=== PATIENT | male | born 1970 | race Caucasian/White ===

== ENCOUNTER → 2020-06-14 12:23 | Outpatient (CLI) | payer OTHER, SELFPAY ==
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
== END ==
PROVIDERS: PCP Family Medicine; Referring Provider Physician Assistant; Visit Provider Physician Assistant
DX: R07.81 Pleurodynia (principal)
CPT/HCPCS: 71101

== ENCOUNTER → 2022-01-23 11:48 | Outpatient (CLI) | payer OTHER, MEDICAID, SELFPAY ==
--- NOTE | 2022-01-23 11:51 | DI.RAD.S_ITS ---
PROCEDURE: XR CERVICAL SPINE 2V OR 3V INDICATIONS: neck pain with left hand numbness TECHNIQUE: 3 view(s) of the cervical spine were acquired. COMPARISON: None. FINDINGS: Bones: No fractures or dislocations to the T1 level. Mild degenerative change in the cervical spine. The lateral masses of C1 appear intact on the odontoid view. No suspicious bony lesions. Skin marker overlying the left upper chest. Soft tissues: No prevertebral soft tissue swelling. IMPRESSION: Mild degenerative change in the cervical spine. If clinically indicated MRI could be considered for further evaluation. Dictated by: Phuc Rodriguez M.D. on 01/23/2022 at 14:31 Approved by: Phuc Rodriguez M.D. on 01/23/2022 at 14:32
== END ==
PROVIDERS: PCP Family Medicine; Referring Provider Family Medicine; Visit Provider Family Medicine
DX: F17.200 Nicotine dependence, unspecified, uncomplicated (principal); M54.2 Cervicalgia
CPT/HCPCS: 72040

== ENCOUNTER → 2022-03-04 08:23 | Outpatient (CLI) | payer OTHER, MEDICAID, SELFPAY ==
[2022-03-04 09:22] LABS: Add Manual Diff / Slide Review NO; Basophils Absolute Auto 0 /uL (0-100); Basophils Percent Auto 0.2 % (0-2); Eosinophils Absolute Auto 300 /uL (0-450); Eosinophils Percent Auto 3.6 % (2-4); Hematocrit 39.5 % (41-53); Hemoglobin 13.7 g/dL (13.5-17.5); Lymphocytes Absolute Auto 2500 /uL (1100-4500); Lymphocytes Percent Auto 32.6 % (25-40); Mean Corpuscular HGB Conc 34.7 % (30-36); Mean Corpuscular Hemoglobin 32.3 PG (26-34); Mean Corpuscular Volume 92.9 fL (80-100); Monocytes Absolute Auto 600 /uL (0-900); Monocytes Percent Auto 7.2 % (3-14); Neutrophils Absolute Auto 4400 /uL (1500-7000); Neutrophils Percent Auto 56.4 % (50-75); Platelet Count 254 X10^3/uL (150-400); Red Blood Cell Count 4.25 X10^6/uL (4.5-5.9); Red Cell Distribution Width 12.9 % (11.6-14.8); White Blood Cell Count 7.7 X10^3/uL (4.5-11.0)
[2022-03-04 09:34] LABS: Alanine Aminotransferase 27 IU/L (<50); Albumin 4.1 g/dL (3.5-5.0); Albumin Globulin Ratio 1.6 (1.0-2.8); Alkaline Phosphatase 77 U/L (38-126); Aspartate Aminotransferase 26 IU/L (17-59); BUN Creatinine Ratio 22.3 (6-22); Bilirubin Total 0.7 mg/dL (0.2-1.3); Blood Urea Nitrogen 21 mg/dL (9-20); Calcium 8.9 mg/dL (8.4-10.2); Carbon Dioxide 27 mmol/L (22-32); Chloride 102 mmol/L (98-107); Cholesterol 188 mg/dL (140-199); Estimated Glomerular Filt Rate > 60 mL/min (>60); Globulin 2.6 g/dL (1.7-4.1); Glucose 90 mg/dL (70-100); HDL Cholesterol 49 mg/dL (40-60); HEMOLYSIS < 15 (0-50); LDL Cholesterol Calculated 111 mg/dL (<100); Potassium 4.2 mmol/L (3.4-5.1); Sodium 137 mmol/L (137-145); Total Protein 6.7 g/dL (6.3-8.2); Triglycerides 138 mg/dL (35-150)
[2022-03-04 09:55] LABS: Creatinine Urine Random 155.7 mg/dL
[2022-03-04 10:01] LABS: TSH w/ Reflex to FT4 3.95 uIU/mL (0.47-4.68)
[2022-03-04 10:02] LABS: Microalbumin Urine Random < 0.6 mg/dL (0-1.6)
== END ==
PROVIDERS: PCP Family Medicine; Referring Provider Family Medicine; Visit Provider Family Medicine
DX: F17.200 Nicotine dependence, unspecified, uncomplicated (principal); M54.2 Cervicalgia
CPT/HCPCS: 36415; 80053; 80061; 82043; 82570; 84443; 85025

== ENCOUNTER → 2022-03-21 11:51 | Outpatient (CLI) | payer OTHER, MEDICAID, SELFPAY ==
[2022-03-21 13:39] LABS: COVID19 -Nasal RAPID Negative (Negative)
--- NOTE | 2022-03-21 14:35 | PM.TREADMILL ---
Cardiac Stress Test Report Referral & Results Date Patient Seen: 03/21/22 Requesting provider: Bentley Gill Indication: Family history coronary disease Rest ECG: Unremarkable Procedure Note: Today following both written and verbal informed consent, the patient was exercised according to a standard Neri protocol. The patient exercised for a total of 12 minutes 24 seconds achieving a maximum heart rate of 151. Patient's maximum systolic blood pressure was 168. This was an estimated 12.8 MET's. There were nonspecific ST-T segment changes specially in the inferior leads with exercise that rapidly returned to normal the end of exercise. These are likely nonischemic Normal heart rate and blood pressure response to exercise Function aerobic impairment off scale estimate it at -23% on the active scale or 123% of normal Impression: Normal treadmill no evidence of ischemia. Nonspecific ST changes make this possibly low risk treadmill but I think should be considered entirely normal Excellent exercise capacity Clinical correlation suggested Please note: Actual ECG tracings can be found in the PACS system.
== END ==
PROVIDERS: PCP Family Medicine; Referring Provider Family Medicine; Visit Provider Family Medicine
DX: R20.0 Anesthesia of skin (principal); F17.200 Nicotine dependence, unspecified, uncomplicated; Z82.49 Family history of ischemic heart disease and other diseases of the circulatory system; E78.5 Hyperlipidemia, unspecified; Z20.822 Contact with and (suspected) exposure to COVID-19
CPT/HCPCS: 87635; 93016; 93017; 93018

== ENCOUNTER → 2022-05-20 10:36 | Outpatient (CLI) | payer OTHER, MEDICAID, SELFPAY ==
[2022-05-20 11:18] LABS: COVID19 -Nasal RAPID Negative (Negative)
== END ==
PROVIDERS: PCP Family Medicine; Visit Provider Surgery
DX: Z01.812 Encounter for preprocedural laboratory examination (principal); Z20.822 Contact with and (suspected) exposure to COVID-19
CPT/HCPCS: 87635

== ENCOUNTER 2022-05-20 11:28 | Day surgery (SDC) | payer OTHER, MEDICAID, SELFPAY ==
[2022-05-20 11:47] VITALS: BP 130/88; PULSE 68; RESP 18; TEMP 36.1; O2SAT 99; BMI 27.1
[2022-05-20] MEDS: LACTATED RINGERS 1,000 ML 200 ML IV (11:56)
--- NOTE | 2022-05-20 12:37 | PM.HP.1 ---
History of Present Illness History of Present Illness Date Patient Seen: 05/20/22 Time Patient Seen: 12:37 [place] [facility] [place] The patient presents for colorectal screening. They have never had any previous examination for such. No personal or family history of colon cancer. On further history denies any recent gastrointestinal symptoms. No nausea, vomiting, abdominal pain, loss of appetite, unexplained weight loss, change in bowel habits, or blood per rectum. Patient History Medical History Chicken pox (~1979) Family history of coronary artery disease No active medical problems Smoker unmotivated to quit (10/11/13) Family & Social History Family History Mother Mental health problem Sister Mental health problem Social History: household members children Tobacco & Substance use: Tobacco type cigarettes Smoking Status Current every day smoker alcohol intake current alcohol intake frequency 0-2 drinks per day Substance Use Type does not use Meds Home Medications and Allergies Home Medications Medication Instructions Recorded Confirmed Type No Known Home Medications 05/19/22 05/20/22 History Allergies Allergy/AdvReac Type Severity Reaction Status Date / Time No Known Drug Allergies Allergy Verified 05/20/22 11:46 Exam Vital Signs (past 8 hours): - 05/20/22 11:47 Temperature 96.9 F L Pulse Rate 68 Respiratory Rate 18 Blood Pressure 130/88 Pulse Oximetry 99 Oxygen Delivery Method Room Air Oxygen Delivery Method Room Air Narrative Exam Narrative: General adult man alert oriented no acute distress Abdomen soft nontender nondistended Assessment & Plan Assessment & Plan narrative: The patient requires colorectal screening and colonoscopy is recommended. Technical details were discussed. Risks, benefits, alternatives explained. Risks including but not limited to myocardial infarction, aspiration, bleeding, pain, missed lesion, incomplete examination, need for further radiographic studies, colonic perforation, and need for major abdominal surgery were discussed. All questions were answered to their satisfaction, and they are in agreement with this plan. Time Spent With Patient Critical Care time: I spent a total of [] minutes of critical care time on this patient's care today; this time is exclusive of procedural time.
--- NOTE | 2022-05-20 12:38 | PM.OP.COLON ---
Operative Date/Time/Diagnoses Date of procedure: 05/20/22 Time of procedure: 12:38 Pre-op diagnosis: Colorectal screening Post-op diagnosis: same Procedure & Clinicians Study performed: Colonoscopy Same procedure as scheduled: Yes Indications: Colorectal screening Surgeon: Amilcar Payton Procedure Notes Procedure in detail: The history and physical was performed/updated and the patient is ASA class is 1. The procedure was discussed in detail with the patient. Potential risks complications including infection, bleeding, missed diagnosis, perforation, need for surgery, and were explained. Their questions were answered and informed consent was obtained. Patient was brought to the procedure room and placed standard monitoring equipment. The patient's vital signs were monitored continuously throughout the entire procedure. Prior to starting time-out was performed. The patient was placed in the left lateral recumbent position. Procedural sedation was administered by anesthesia. Examination began with a thorough inspection of the perianal area there was no evidence of fissures, fistulae, external hemorrhoids or cutaneous malignancy. The colonoscopy scope was then placed into the anal canal and was advanced to the cecum, which was identified by the ileocecal valve, the appendiceal orifice and the confluence of the taenia. The scope was then slowly withdrawn examining colon thoroughly in all directions, irrigating it of any residual stool. FINDINGS 1. No masses inflammation or polyps 2. Sigmoid extensive diverticulosis The patient tolerated the procedure well. They will be discharged once criteria are met. The prep was of good/excellent quality. The withdrawl time was 6 minutes. Specimen(s): none sent Impression: Normal colonoscopy Post-procedure Recommendations: Colonoscopy in 10 years and High fiber diet Disposition: same day surgery
[2022-05-20 12:57] VITALS: BP 112/87; PULSE 70; RESP 18; TEMP 36.3; O2SAT 94
[2022-05-20 13:02] VITALS: BP 113/83; PULSE 63; RESP 15; O2SAT 97
[2022-05-20 13:07] VITALS: BP 118/87; PULSE 60; RESP 14; TEMP 36.2; O2SAT 99
[2022-05-20 13:16] VITALS: BP 124/88; PULSE 62; RESP 13; TEMP 36.2; O2SAT 97
--- NOTE | 2022-05-20 13:40 | SUR.PHASEII ---
1325: Pt A&O x 4 denies any distress, abdomen soft, and desires to discharge home at this time. Discharge instructions reviewed and time allowed for questions. Pt left unit via w/c to er entrance where spouse met to transport pt home.
== END 2022-05-20 13:30 | disposition home or self-care (01) ==
PROVIDERS: PCP Family Medicine; Referring Provider Surgery; Visit Provider Surgery
PROC: 0DJD8ZZ Inspection of Lower Intestinal Tract, Via Natural or Artificial Opening Endoscopic (ICD-10-PCS; CPT 45378; principal; 2022-05-20 12:45)
DX: Z12.11 Encounter for screening for malignant neoplasm of colon (principal); K57.30 Diverticulosis of large intestine without perforation or abscess without bleeding
CPT/HCPCS: 45378; 87635; C9803; J2704

== ENCOUNTER 2022-09-22 16:27 | Outpatient (RCR) | payer OTHER, MEDICAID, SELFPAY ==
--- NOTE | 2022-09-22 17:52 | PT.OIE ---
Current Diagnoses Pain in right shoulder (09/22/22) Stiffness of right shoulder, not elsewhere classified (09/22/22) Other specified joint disorders, right shoulder (09/22/22) Bicipital tendinitis, right shoulder (09/22/22) Past Medical History (Last Reviewed 05/20/22 @ 12:37 by Amilcar Payton MD) Chicken pox (~1979) Family history of coronary artery disease No active medical problems Smoker unmotivated to quit (10/11/13) Visit Care Team Role Provider Type Bentley Gill MD Attending Provider Physician Family Provider Primary Care Provider Referring Provider Specialty: Family Practice Address: [address] [place] [address] Email: [email or web address] Physical Therapy Initial Evaluation PT-OP-A Visit Information Start: 09/22/22 15:19 Freq: Status: Active Protocol: Document 09/22/22 16:35 DCW (Rec: 09/22/22 17:37 DCW [id number]) Out-Patient Physical Therapy Visit Information Visit Information Visit Type Initial Evaluation Visit Start Time 16:35 Visit Stop Time 17:15 Total Visit Minutes 40 Visit Number 1 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 Pt unsure of any specific GRAYSON, but does note that he spends a lot of time driving his kids around town and making short trips, which results in repetitively reaching across his body for his seatbelt, which is when he first noticed pain. Pt also works at [employer], and does a lot of lifting activities at work. Pt notes pain is very specifically in his anterior shoulder, with occasional pain down his upper arm. Any activity involving reaching overhead, reaching backward, mountain biking, or playing basketball with his son all really bother his shoulder. PT-OP-C Subjective Start: 09/22/22 15:19 Freq: Status: Active Protocol: Document 09/22/22 16:35 DCW (Rec: 09/22/22 17:37 DCW [id number]) OP-PT Subjective Patient Comments Patient Comments I'm just not sure what's going on with it. I tried to look some stuff up on YouTube, but it wasn't really helpful. Patient Reported Progress Same Patient Questionnaires Quick Dash- Upper Extremity Quick Dash UE Score 36.36% OP-PT Pain Assessment Pain Assessment Grid Paper Pain Assessment Grid Completed Yes Location Right Anterior Shoulder Intensity 5 Scale Used Numeric (0 - 10) Description Aching,Sharp PT-OP-E Functional Tests Start: 09/22/22 15:19 Freq: Status: Active Protocol: Document 09/22/22 16:35 DCW (Rec: 09/22/22 17:37 DCW [id number]) Functional Tests Apley's Scratch Test Action 1- Left Porterior opposite shoulder Action 1- Right Lateral opposite shoulder Action 2- Left T3 Action 2- Right T2 Action 3- Left T9 Action 3- Right T9 PT-OP-F Manual Assessment Start: 09/22/22 15:19 Freq: Status: Active Protocol: Document 09/22/22 16:35 DCW (Rec: 09/22/22 17:37 DCW [id number]) Manual Assessments Soft Tissue Assessment Soft Tissue Mobility Assessment Tenderness to palpation 3/4: Wincing and withdraw: right bicipital groove PT-OP-K Range of Motion Start: 09/22/22 15:19 Freq: Status: Active Protocol: Document 09/22/22 16:35 DCW (Rec: 09/22/22 17:37 DCW [id number]) Shoulder Goniometric Range of Motion Shoulder Right Active Shoulder ROM WFL No Testing Position Sitting Flexion 91 Abduction 78 External Rotation at 0 degrees Abduction 48 Comments ROM limited exclusively by pain, not joint or soft tissue mobility Left Active Shoulder ROM WFL Yes Testing Position Sitting Flexion 180 Abduction 180 External Rotation at 0 degrees Abduction 75 Shoulder ROM Limitations Shoulder ROM Limitations Pain PT-OP-L Special Tests Start: 09/22/22 15:19 Freq: Status: Active Protocol: Document 09/22/22 16:35 DCW (Rec: 09/22/22 17:37 DCW [id number]) Special Tests Shoulder Special Tests Yergason's Biceps Test Results Positive R Speed's Biceps Test Results Positive R Passive ER Rotator Cuff Test Results Negative Painful Arc Test Results Positive R Lift-Off Rotator Cuff Test Results Negative Rosenthal Lei Impingement Test Results Negative Grind Labrum Test Results Negative Empty Can Test Results Negative Drop Arm Rotator Cuff Test Results Positive R Belly Press Test Results Negative Anterior Draw Test Results Negative PT-OP-M Strength Start: 09/22/22 15:19 Freq: Status: Active Protocol: Document 09/22/22 16:35 DCW (Rec: 09/22/22 17:37 [facility] [id number]) Shoulder Strength Shoulder Manual Muscle Testing Right Flexion 3+ Fair+ Abduction (C5) 3+ Fair+ External Rotation 4 Good Internal Rotation 4+ Good+ Comments Limited more by pain than true weakness PT-OP-Q Treatments Start: 09/22/22 15:19 Freq: Status: Active Protocol: Document 09/22/22 16:35 DCW (Rec: 09/22/22 17:37 [facility] [id number]) Therapeutic Exercises Standing Exercises Reverse Curls Standing Exercise Name Reverse Curls Side right Resistance Green T-band Rows Standing Exercise Name Rows Side bilateral Resistance Green T-band Shoulder Extension Standing Exercise Name Shoulder Extension Side bilateral Resistance Green T-band PT-OP-T Assessment and Plan Start: 09/22/22 15:19 Freq: Status: Active Protocol: Document 09/22/22 16:35 DCW (Rec: 09/22/22 17:52 [facility] [id number]) Physical Therapy Assessment Rehab Potential Rehabilitation Potential Excellent Evaluation Complexity Number of Personal Factors/Comorbidities 0 Number of Body Systems Impaired 1-2 Clinical Presentation at Evaluation Stable Impairments Impairments Activity Tolerance,Functional Activities,Functional Mobility ,Pain,ROM,Soft Tissue Mobility ,Strength Goals Two Impairment Pt unable to perform overhead 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 in both flexion and abduction in order to improve ability to fully participate in daily work activities. LTG Duration 11/22/22 One Impairment Pt does not have an appropriate home exercise program Short Term Goal (STG) Pt to be independent and compliant with an appropriate HEP STG Duration 10/23/22 Assessment Summary Assessment Pt presents with signs and symptoms strongly suggestive of right bicipital tendonitis, based on point-specific pain at bicipital groove, positive yergason's and speeds biceps testing, painful ROM and difficulty with curls. Pt will likely benefit from brief episodes of skilled PT focusing on gentle, pain-free strengthening, trial of taping , STM, shoulder stabilization, and shoulder mobility. Should benefit pt to return to usual job activities and allow him to better play with his kids. Pt will likely transition fairly quickly to independent HEP with focus on appropriate HEP and patient education. Physical Therapy Plan Frequency and Duration Frequency of Treatment 1-2x/week Plan of Care Start Date 09/22/22 Plan of Care End Date 11/22/22 Therapeutic Interventions Therapeutic Interventions Home Exercise Program,Joint Mobilizations,Manual Therapy, Patient/Caregiver Education, Self-Care/Home Management,Soft Tissue Mobilization,Taping, Therapeutic Activities, Therapeutic Exercises Modalities Cold Pack/Ice Massage, Iontophoresis,Ultrasound Other Therapeutic Interventions Iontophoresis with Dexamethasone, 4 mg/mL Next Visit Focus/Plan Next Note Type Treatment Note Next Visit Plan Strengthening, STM, pain control/anti-inflammatory modalities
--- NOTE | 2022-09-22 17:52 | PT.OPPOC ---
Physical, Occupational & Speech Therapy At [facility] Current Diagnoses Pain in right shoulder (09/22/22) Stiffness of right shoulder, not elsewhere classified (09/22/22) Other specified joint disorders, right shoulder (09/22/22) Bicipital tendinitis, right shoulder (09/22/22) Visit Care Team Role Provider Type Bentley Gill MD Attending Provider Physician Family Provider Primary Care Provider Referring Provider Specialty: Family Practice Address: [address] [place] [address], [facility] Email: [email or web address] Plan Of Care PT-OP-T Assessment and Plan Start: 09/22/22 15:19 Freq: Status: Active Protocol: Document 09/22/22 16:35 DCW (Rec: 09/22/22 17:52 DCW [id number]) Physical Therapy Assessment Rehab Potential Rehabilitation Potential Excellent Evaluation Complexity Number of Personal Factors/Comorbidities 0 Number of Body Systems Impaired 1-2 Clinical Presentation at Evaluation Stable Impairments Impairments Activity Tolerance,Functional Activities,Functional Mobility ,Pain,ROM,Soft Tissue Mobility ,Strength Goals Two Impairment Pt unable to perform overhead activities without pain Residential Goal (LTG) Pt to improve right shoulder ROM to at least 130? in both flexion and abduction in order to improve ability to fully participate in daily work activities. LTG Duration 11/22/22 One Impairment Pt does not have an appropriate home exercise program Short Term Goal (STG) Pt to be independent and compliant with an appropriate HEP STG Duration 10/23/22 Assessment Summary Assessment Pt presents with signs and symptoms strongly suggestive of right bicipital tendonitis, based on point-specific pain at bicipital groove, positive yergason's and speeds biceps testing, painful ROM and difficulty with curls. Pt will likely benefit from brief episodes of skilled PT focusing on gentle, pain-free strengthening, trial of taping , STM, shoulder stabilization, and shoulder mobility. Should benefit pt to return to usual job activities and allow him to better play with his kids. Pt will likely transition fairly quickly to independent HEP with focus on appropriate HEP and patient education. Physical Therapy Plan Frequency and Duration Frequency of Treatment 1-2x/week Plan of Care Start Date 09/22/22 Plan of Care End Date 11/22/22 Therapeutic Interventions Therapeutic Interventions Home Exercise Program,Joint Mobilizations,Manual Therapy, Patient/Caregiver Education, Self-Care/Home Management,Soft Tissue Mobilization,Taping, Therapeutic Activities, Therapeutic Exercises Modalities Cold Pack/Ice Massage, Iontophoresis,Ultrasound Other Therapeutic Interventions Iontophoresis with Dexamethasone, 4 mg/mL Next Visit Focus/Plan Next Note Type Treatment Note Next Visit Plan Strengthening, STM, pain control/anti-inflammatory modalities Plan of Care Dates Plan of Care Start Date 09/22/22 Plan of Care End Date 11/22/22 Electronically Signed by: Manjinder Rush, PT 09/22/22 0965 If you are in agreement with this Plan of Care, please return a signed and dated copy. I have reviewed this Plan of Care and certify that the skilled therapy services above are required to meet the patient?s needs. Physician Signature Date Printed Name and Credentials Clinical Instructor Signature Printed Name and Credentials
--- NOTE | 2023-01-13 11:27 | PT.OPDS ---
Current Diagnoses Pain in right shoulder (09/22/22) Stiffness of right shoulder, not elsewhere classified (09/22/22) Other specified joint disorders, right shoulder (09/22/22) Bicipital tendinitis, right shoulder (09/22/22) Visit Care Team Role Provider Type Bentley Gill MD Attending Provider Physician Family Provider Primary Care Provider Referring Provider Specialty: Family Practice Address: [address] [place] [address], [facility] Email: [email or web address] Visit Number Visit Number 1 Discharge Summary PT-OP-B Current Condition Start: 09/22/22 15:19 Freq: Status: Active Protocol: Document 09/22/22 16:35 DCW (Rec: 09/22/22 17:37 DCW [id number]) Current Condition History of Current Condition Onset Date 3-4 month history Current Complaints Right anterior shoulder pain, stiffness History of Current Condition Pt is a 52 year old male presenting with a 3-4 month history with right shoulder pain. Pt unsure of any specific GRAYSON, but does note that he spends a lot of time driving his kids around town and making short trips, which results in repetitively reaching across his body for his seatbelt, which is when he first noticed pain. Pt also works at [employer], and does a lot of lifting activities at work. Pt notes pain is very specifically in his anterior shoulder, with occasional pain down his upper arm. Any activity involving reaching overhead, reaching backward, mountainbiking, or playing basketball with his son all really bother his shoulder. PT-OP-C Subjective Start: 09/22/22 15:19 Freq: Status: Active Protocol: Document 09/22/22 16:35 DCW (Rec: 09/22/22 17:37 DCW [id number]) OP-PT Subjective Patient Comments Patient Comments I'm just not sure what's going on with it. I tried to look some stuff up on YouTube, but it wasn't really helpful. Patient Reported Progress Same Patient Questionnaires Quick Dash- Upper Extremity Quick Dash UE Score 36.36% OP-PT Pain Assessment Pain Assessment Grid Paper Pain Assessment Grid Completed Yes Location Right Anterior Shoulder Intensity 5 Scale Used Numeric (0 - 10) Description Aching,Sharp PT-OP-E Functional Tests Start: 09/22/22 15:19 Freq: Status: Active Protocol: Document 09/22/22 16:35 DCW (Rec: 09/22/22 17:37 DCW [id number]) Functional Tests Apley's Scratch Test Action 1- Left Porterior opposite shoulder Action 1- Right Lateral opposite shoulder Action 2- Left T3 Action 2- Right T2 Action 3- Left T9 Action 3- Right T9 PT-OP-F Manual Assessment Start: 09/22/22 15:19 Freq: Status: Active Protocol: Document 09/22/22 16:35 DCW (Rec: 09/22/22 17:37 DCW [id number]) Manual Assessments Soft Tissue Assessment Soft Tissue Mobility Assessment Tenderness to palpation 3/4: Wincing and withdraw: right bicipital groove PT-OP-K Range of Motion Start: 09/22/22 15:19 Freq: Status: Active Protocol: Document 09/22/22 16:35 DCW (Rec: 09/22/22 17:37 DCW [id number]) Shoulder Goniometric Range of Motion Shoulder Right Active Shoulder ROM WFL No Testing Position Sitting Flexion 91 Abduction 78 External Rotation at 0 degrees Abduction 48 Comments ROM limited exclusively by pain, not joint or soft tissue mobility Left Active Shoulder ROM WFL Yes Testing Position Sitting Flexion 180 Abduction 180 External Rotation at 0 degrees Abduction 75 Shoulder ROM Limitations Shoulder ROM Limitations Pain PT-OP-L Special Tests Start: 09/22/22 15:19 Freq: Status: Active Protocol: Document 09/22/22 16:35 DCW (Rec: 09/22/22 17:37 DCW [id number]) Special Tests Shoulder Special Tests Yergason's Biceps Test Results Positive R Speed's Biceps Test Results Positive R Passive ER Rotator Cuff Test Results Negative Painful Arc Test Results Positive R Lift-Off Rotator Cuff Test Results Negative Rosenthal Lei Impingement Test Results Negative Grind Labrum Test Results Negative Empty Can Test Results Negative Drop Arm Rotator Cuff Test Results Positive R Belly Press Test Results Negative Anterior Draw Test Results Negative PT-OP-M Strength Start: 09/22/22 15:19 Freq: Status: Active Protocol: Document 09/22/22 16:35 DCW (Rec: 09/22/22 17:37 DCW [id number]) Shoulder Strength Shoulder Manual Muscle Testing Right Flexion 3+ Fair+ Abduction (C5) 3+ Fair+ External Rotation 4 Good Internal Rotation 4+ Good+ Comments Limited more by pain than true weakness PT-OP-T Assessment and Plan Start: 09/22/22 15:19 Freq: Status: Active Protocol: Document 01/13/23 11:26 DCW (Rec: 01/13/23 11:27 DCW [id number]) Physical Therapy Assessment Goals Two Impairment Pt unable to perform overhead activities without pain Fdc Goal (LTG) Pt to improve right shoulder ROM to at least 130? in both flexion and abduction in order to improve ability to fully participate in daily work activities. LTG Duration 11/22/22 One Impairment Pt does not have an appropriate home exercise program Short Term Goal (STG) Pt to be independent and compliant with an appropriate HEP STG Duration 10/23/22 Assessment Summary Assessment Pt canceled follow-up visit, has now not been seen in more than three months. Pt discharged from skilled PT at this time, will require a new referral in order to return. Physical Therapy Plan Discharge Physical Therapy Discharge Reasons No Longer Attending PT Next Visit Focus/Plan Next Note Type Discharge Summary
== END 2023-01-15 15:42 | disposition home or self-care (01) ==
LOC: PHYS 16:27
PROVIDERS: Family Provider Family Medicine; PCP Family Medicine; Referring Provider Family Medicine; Visit Provider Family Medicine
DX: M25.811 Other specified joint disorders, right shoulder (principal); M25.511 Pain in right shoulder; M25.611 Stiffness of right shoulder, not elsewhere classified; M75.21 Bicipital tendinitis, right shoulder
CPT/HCPCS: 97161

== ENCOUNTER 2023-05-12 09:36 | Emergency (ER) | payer OTHER, MEDICAID, SELFPAY ==
[2023-05-12] VITALS (7 sets, daily range): BP systolic 138–154; BP diastolic 94–101; PULSE 60–74; RESP 17–20; TEMP 36.9; O2SAT 93–96; BMI 28.5
--- NOTE | 2023-05-12 09:56 | DI.RAD.S_ITS ---
PROCEDURE: XR CHEST 1V INDICATIONS: chest pain TECHNIQUE: One view of the chest was acquired. COMPARISON: None. FINDINGS: Surgical changes and devices: None. Lungs and pleura: Lungs are clear. No pleural effusions or pneumothorax. Mediastinum: Mediastinal contours appear normal. Heart size is normal. Bones and chest wall: No suspicious bony lesions. Overlying soft tissues appear unremarkable. IMPRESSION: No acute cardiopulmonary abnormality is seen. Dictated by: Amanda Tse M.D. on 05/12/2023 at 10:59 Approved by: Amanda Tse M.D. on 05/12/2023 at 10:59
[2023-05-12 10:17] LABS: Basophils Absolute Auto 100 /uL (0-100); Basophils Percent Auto 0.5 % (0-2); Eosinophils Absolute Auto 800 /uL (0-450); Eosinophils Percent Auto 6.3 % (2-4); Hematocrit 44.2 % (41-53); Hemoglobin 15.4 g/dL (13.5-17.5); Lymphocytes Absolute Auto 2300 /uL (1100-4500); Lymphocytes Percent Auto 18.8 % (25-40); Mean Corpuscular HGB Conc 34.7 % (30-36); Monocytes Absolute Auto 1100 /uL (0-900); Monocytes Percent Auto 9.1 % (3-14); Neutrophils Absolute Auto 8100 /uL (1500-7000); Neutrophils Percent Auto 65.3 % (50-75); Platelet Count 204 X10^3/uL (150-400); Red Cell Distribution Width 13.1 % (11.6-14.8); White Blood Cell Count 12.4 X10^3/uL (4.5-11.0)
--- NOTE | 2023-05-12 10:18 | ED.URI ---
HPI - URI/Sore Throat General Chief Complaint: Upper Respiratory Symptoms Stated Complaint: poss pnemonia Time Seen by Provider: 05/12/23 10:03 Source: patient Mode of arrival: Ambulatory History of Present Illness HPI Narrative: Patient 53-year-old healthy male who presents today with cough and body aches fatigue. He reports he went to a concert and then following day he developed a very deep cough. It has been ongoing now for at least 5 days. No real fever he has some shortness of breath both at rest and with exertion. He is able to eat and drink. Just generally feeling very fatigued. No significant chest pain. Related Data Allergies Allergy/AdvReac Type Severity Reaction Status Date / Time No Known Drug Allergies Allergy Verified 05/12/23 09:46 Patient History Medical History Chicken pox (~1979) Family history of coronary artery disease No active medical problems Smoker unmotivated to quit (10/11/13) Family History Mother Mental health problem Sister Mental health problem Social History household members: children Smoking Status: Current every day smoker alcohol intake: current Smoking Status: Current every day smoker alcohol intake frequency: 0-2 drinks per day Substance Use Type: does not use Exam Initial Vital Signs Initial Vital Signs: Vital Signs Temperature 98.5 F 05/12/23 09:39 Pulse Rate 70 05/12/23 09:39 Respiratory Rate 18 05/12/23 09:39 Blood Pressure 138/101 H 05/12/23 09:39 Pulse Oximetry 94 05/12/23 09:39 Oxygen Delivery Method Room Air 05/12/23 09:39 GENERAL: Alert pleasant 53-year-old male no acute distress HEENT: Head atraumatic,EOMI, pupils reactive, face symmetric, [moist] mucous membranes CARDIOVASCULAR: Regular rate and rhythm without murmurs, rubs or gallops. RESPIRATORY: Slightly coarse breath sounds bilaterally no significant wheezes no conversational dyspnea ABDOMEN: Soft, nontender. Normoactive bowel sounds all 4 quadrants. No guarding or rebound. EXTREMITIES: Normal range of motion, no clubbing or edema. Neurovascularly intact NEUROLOGICAL: Alert and oriented x4.Normal gait and speech. Cranial nerves II through XII grossly intact. SKIN: Warm, dry, no laceration, no petechiae, no rashes or lesions. Course Orders Ordered: ED Orders 05/12/23 09:56 XR chest 1V Stat EKG-12 Lead Stat 05/12/23 10:06 Complete Blood Count AUTO DIFF Stat Comprehensive Metabolic Panel Stat Lipase Stat Magnesium Stat Procalcitonin Stat Troponin & CK Cardiac Panel Stat 05/12/23 10:15 Lactate (Lactic Acid) Stat PTT Partial Thromboplastin Miguel Stat Prothrombin Time INR Stat 05/12/23 10:20 Covid-19 + FLU A/B + RSV - PCR Stat Discontinued Medications Aspirin (Aspirin 81 Mg Chew Tab) 324 mg PO NOW ONE Stop: 05/12/23 09:57 Last Admin: 05/12/23 11:26 Dose: 324 mg Documented By: MARCIO Sodium Chloride (Normal Saline 0.9%) 1,000 mls @ 1,000 mls/hr IV BOLUS ONE Stop: 05/12/23 11:17 Last Infusion: 05/12/23 11:27 Dose: Infused Documented By: Admin: 05/12/23 10:29 Dose: 1,000 mls/hr Documented By: ULI Vital Signs Vital signs: Vital Signs - 8 hr 05/12/23 09:39 05/12/23 09:55 05/12/23 09:55 Temperature 98.5 F Pulse Rate 70 72 Respiratory Rate 18 Blood Pressure 138/101 H 142/94 H Pulse Oximetry 94 93 Oxygen Delivery Method Room Air 05/12/23 10:00 05/12/23 10:30 05/12/23 11:00 Temperature Pulse Rate 74 66 61 Respiratory Rate 19 19 17 Blood Pressure Pulse Oximetry 96 96 96 Oxygen Delivery Method 05/12/23 11:30 05/12/23 11:34 05/12/23 11:34 Temperature Pulse Rate 60 61 Respiratory Rate 18 20 Blood Pressure 154/99 H Pulse Oximetry 96 95 Oxygen Delivery Method MDM - URI/Sore Throat Lab Data 05/12/23 10:06 05/12/23 10:06 Labs: Lab Results 05/12/23 05/12/23 05/12/23 Range/Units 10:06 10:15 10:20 WBC 12.4 H (4.5-11.0) X10^3/uL RBC 4.80 (4.5-5.9) X10^6/uL Hgb 15.4 (13.5-17.5) g/dL Hct 44.2 (41-53) % MCV 92.0 (80-100) fL MCH 32.0 (26-34) PG MCHC 34.7 (30-36) % RDW 13.1 (11.6-14.8) % Plt Count 204 (150-400) X10^3/uL Neut % (Auto) 65.3 (50-75) % Lymph % (Auto) 18.8 L (25-40) % [place] % (Auto) 9.1 (3-14) % Eos % (Auto) 6.3 H (2-4) % Baso % (Auto) 0.5 (0-2) % Neut # (Auto) 8100 H (7047-8299) /uL Lymph # (Auto) 2300 (8963-5584) /uL [place] # (Auto) 1100 H (0-900) /uL Eos # (Auto) 800 H (0-450) /uL Baso # (Auto) 100 (0-100) /uL Plt Morphology Comment RBC Morphology Normal morphology PT 10.7 (9.4-12.5) SECONDS INR 0.9 (0.9-1.3) APTT 20 L (25.1-36.5) SECONDS Sodium 136 L (137-145) mmol/L Potassium 4.9 (3.4-5.1) mmol/L Chloride 106 (98-107) mmol/L Carbon Dioxide 24 (22-32) mmol/L BUN 20 (9-20) mg/dL Creatinine 0.77 (0.66-1.25) mg/dL Estimated GFR > 60 (>60) mL/min BUN/Creatinine Ratio 26.0 H (6-22) Glucose 93 (70-100) mg/dL Lactate 1.1 (0.7-2.1) mmol/L Calcium 9.6 (8.4-10.2) mg/dL Magnesium 2.0 (1.6-2.3) mg/dL Total Bilirubin 0.9 (0.2-1.3) mg/dL AST TNP ALT 31 (<50) IU/L Alkaline Phosphatase 65 (38-126) U/L Total Creatine Kinase 85 (55-170) U/L Troponin I 0.018 (0.01-0.034) ng/mL Total Protein 7.9 (6.3-8.2) g/dL Albumin 4.5 (3.5-5.0) g/dL Globulin 3.4 (1.7-4.1) g/dL Albumin/Globulin Ratio 1.3 (1.0-2.8) Lipase 68 (23-300) U/L Procalcitonin 0.10 (<0.5) ng/mL SARS-CoV-2 (PCR) Negative (Negative) Influenza A (RT-PCR) Flu a negative (NEGATIVE) Influenza B (RT-PCR) Flu b negative (NEGATIVE) RSV (PCR) Positive A (Negative) Imaging Data Chest x-ray: Radiologist's Impression: PROCEDURE: XR CHEST 1V INDICATIONS: chest pain TECHNIQUE: One view of the chest was acquired. COMPARISON: None. FINDINGS: Surgical changes and devices: None. Lungs and pleura: Lungs are clear. No pleural effusions or pneumothorax. Mediastinum: Mediastinal contours appear normal. Heart size is normal. Bones and chest wall: No suspicious bony lesions. Overlying soft tissues appear unremarkable. IMPRESSION: No acute cardiopulmonary abnormality is seen. Dictated by: Amanda Tse M.D. on 05/12/2023 at 10:59 ECG Data Interpretation: Normal sinus rhythm rate 59 ME interval 162 QRS [address] changes no T-wave inversions mild artifact MDM Narrative Medical decision making narrative: Patient 53-year-old male presents today with some body aches fatigue and cough. Not febrile tachypneic or hypoxic. But does not productive like cough. Blood work is reviewed: Leukocytosis 12.4, no anemia, electrolytes are stable, lactate 1.1, procalcitonin 0.1 elevated troponin, positive for RSV Chest x-ray reviewed no pneumonia Patient having upper respiratory like symptoms RSV positive. He overall appears well and nontoxic. At this time supportive care only no need for admission or antibiotics Discharge Plan Departure Patient Disposition: Home Clinical Impression: Respiratory syncytial virus (RSV) Instructions: Respiratory Syncytial Virus Activity Restrictions/Additional Instructions: *You have been diagnosed with RSV *What to do: At this time you have a very common virus called RSV. Your x-ray is clear no need for antibiotics. Supportive care only. you will have lots of nasal secretions. Benadryl/allergy medicine may or may not help dry up secretions *Continue to take medications as directed Tylenol or Motrin as needed for pain Benadryl 25 mg night if needed *Follow up with your primary care provider in 2-3 days or call [phone] *Return to ER if you should have increasing shortness of breath decreased fluid intake or any new, worsening or concerning symptoms Referrals: Bentley Gill MD [Primary Care Provider] - Stand Alone Forms: Patient Portal/API
[2023-05-12 10:24] LABS: Add Manual Diff / Slide Review SLIDE REVIEW
[2023-05-12 10:27] LABS: INR 0.9 (0.9-1.3); Prothrombin Time 10.7 SECONDS (9.4-12.5)
[2023-05-12 10:28] LABS: Alanine Aminotransferase 31 IU/L (<50); Albumin 4.5 g/dL (3.5-5.0); Albumin Globulin Ratio 1.3 (1.0-2.8); Alkaline Phosphatase 65 U/L (38-126); Bilirubin Total 0.9 mg/dL (0.2-1.3); Blood Urea Nitrogen 20 mg/dL (9-20); Calcium 9.6 mg/dL (8.4-10.2); Carbon Dioxide 24 mmol/L (22-32); Chloride 106 mmol/L (98-107); Creatine Kinase 85 U/L (55-170); Estimated Glomerular Filt Rate > 60 mL/min (>60); Globulin 3.4 g/dL (1.7-4.1); Glucose 93 mg/dL (70-100); Lipase 68 U/L (23-300); Potassium 4.9 mmol/L (3.4-5.1); Sodium 136 mmol/L (137-145); Total Protein 7.9 g/dL (6.3-8.2)
[2023-05-12 10:29] LABS: PTT Partial Thromboplastin Tim 20 SECONDS (25.1-36.5)
[2023-05-12] MEDS: SODIUM CHLORIDE 0.9% 1,000 ML 1000 ML IV (10:29)
[2023-05-12 10:30] LABS: Lactate (Lactic Acid) 1.1 mmol/L (0.7-2.1)
[2023-05-12 10:39] LABS: RBC Morphology Normal Morphology; Troponin I 0.018 ng/mL (0.01-0.034)
[2023-05-12] MEDS: ASPIRIN 81 MG CHEW TAB 324 MG PO (11:26)
[2023-05-12 11:30] LABS: Influenza A - CEPHEID Flu A NEGATIVE (NEGATIVE); Influenza B - CEPHEID Flu B NEGATIVE (NEGATIVE); Respiratory Syncytial Virus POSITIVE (Negative)
[2023-05-12 11:31] LABS: COVID-19 CEPHEID 4-PLEX PCR Negative (Negative)
[2023-05-15 14:41] LABS: Aspartate Aminotransferase 49 IU/L (17-59); HEMOLYSIS 207 (0-50)
== END 2023-05-12 12:11 | disposition home or self-care (01) ==
PROVIDERS: Emergency Provider Emergency Medicine; Family Provider Family Medicine; PCP Family Medicine
DX: J06.9 Acute upper respiratory infection, unspecified (principal); B97.4 Respiratory syncytial virus as the cause of diseases classified elsewhere; R07.9 Chest pain, unspecified; Z20.822 Contact with and (suspected) exposure to COVID-19
CPT/HCPCS: 0241U; 36415; 71045; 80053; 82550; 83605; 83690; 83735; 84145; 84484; 85025; 85610; 85730; 93005; 96360; 99284

== ENCOUNTER → 2024-02-16 14:59 | Outpatient (CLI) | payer OTHER, MEDICAID, SELFPAY ==
--- NOTE | 2024-02-16 15:00 | DI.RAD.S_ITS ---
PROCEDURE: XR KNEE RT 3V INDICATIONS: pain x 1 mo, medial TECHNIQUE: 3 views of the knee were acquired. COMPARISON: None. FINDINGS: Bones: There are no osseous abnormalities. Joints: The tibialfemoral and patellofemoral joints are normal in width and alignment without arthritic change. . There are no effusions. Soft tissues: Normal IMPRESSION: Normal knee. Dictated by: Issa Art M.D. on 02/17/2024 at 9:18 Approved by: Issa Art M.D. on 02/17/2024 at 9:18
== END ==
PROVIDERS: Family Provider Family Medicine; PCP Family Medicine; Referring Provider Physician Assistant; Visit Provider Physician Assistant
DX: S89.90XA Unspecified injury of unspecified lower leg, initial encounter (principal); X58.XXXA Exposure to other specified factors, initial encounter
CPT/HCPCS: 73562